=== PATIENT | female | born 1955 | race Caucasian/White ===

== ENCOUNTER 2017-04-18 10:41 | Outpatient (CLI) | payer OTHER ==
--- NOTE | 2017-04-19 18:44 | Mammography Report ---
DIGITAL SCREENING MAMMOGRAM: 04/18/2017 CLINICAL INDICATION: A 61-year-old with history of late childbearing, family history of breast cancer screening. COMPARISON: 01/2016, 01/2015, 01/2014, 01/2013, 10/2011, 10/2010, 03/2009. TECHNIQUE: Routine CC and MLO projections were obtained of the breasts. FINDINGS: The breasts again demonstrate heterogeneously dense fibroglandular parenchyma bilaterally. Coarse and punctate, typically benign calcifications are present. No suspicious masses, clustered microcalcifications, or regions of architectural distortion are identified. IMPRESSION: BENIGN FINDINGS. RECOMMENDATIONS: Routine annual screening unless otherwise clinically indicated. BIRADS category 2 benign findings. STANDARD QUALIFYING STATEMENTS 1. This examination was reviewed with the aid of Computed-Aided Detection (CAD). 2. A negative or benign imaging report should not delay biopsy if clinically suspicious findings are present. Consider surgical consultation if warranted. More than 5% of cancers are not identified by imaging. 3. Dense breasts may obscure an underlying neoplasm. TD: 04/19/2017 18:42
== END 2017-04-18 10:42 | disposition home or self-care (01) ==
LOC: DI.S 10:41
PROVIDERS: ATTEND Internal Medicine
DX: Z12.31 Encounter for screening mammogram for malignant neoplasm of breast (principal); Z80.3 Family history of malignant neoplasm of breast
CPT/HCPCS: 77067

== ENCOUNTER 2019-04-23 09:54 | Outpatient (CLI) | payer OTHER ==
--- NOTE | 2019-04-24 09:43 | Mammography Report ---
Reason: SCREENING MAMMO Procedure Date: 04/23/2019 Accession Number: [id number] / [id number] Procedure: MGS - Screening Mammo Dig Bilat CPT Code: Final Report FULL RESULT: EXAM: Screening Mammo Dig Bilat DATE: 04/23/2019 10:19 AM CLINICAL HISTORY: Screening encounter. History of late childbearing and early menses. Family history of breast cancer in the mother at the age of 50. TECHNIQUE: (B) - Bilateral CC and MLO views were obtained. COMPARISON: 04/18/2017 through 10/07/2010. PARENCHYMAL PATTERN: (D) - The breast(s) demonstrate(s) heterogeneously dense fibroglandular parenchyma. FINDINGS: There are no suspicious masses, calcifications, or areas of distortion. IMPRESSION: Negative examination. BI-RADS category 1. RECOMMENDATION: (ANNUAL) - Recommend routine annual screening mammography. BI-RADS CATEGORY: (1) - Negative. STANDARD QUALIFYING STATEMENTS: 1. This examination was reviewed with the aid of Computer-Aided Detection (CAD). 2. A negative or benign imaging report should not preclude biopsy if clinically suspicious findings are present. 3. Dense breasts may obscure an underlying neoplasm. 4. This examination was reviewed without the aid of 3D breast imaging (tomosynthesis).
== END 2019-04-23 09:55 | disposition home or self-care (01) ==
LOC: DI.S 09:54
PROVIDERS: ATTEND Internal Medicine
DX: Z12.31 Encounter for screening mammogram for malignant neoplasm of breast (principal); Z80.3 Family history of malignant neoplasm of breast
CPT/HCPCS: 77067

== ENCOUNTER 2020-06-19 16:15 | Outpatient (CLI) | payer OTHER ==
[2020-06-19 16:53] LABS: HCT - HEMATOCRIT 39.1 % (37.0-47.0); MEAN CORPUSCULAR HGB CONC 33.2 g/dL (32.0-36.0); MEAN CORPUSCULAR VOLUME 96.3 fL (81.0-99.0); RED BLOOD COUNT 4.06 10^6/uL (4.20-5.40); RED CELL DISTRIBUTION WIDTH 11.9 % (12.0-15.0)
[2020-06-19 17:08] LABS: ALBUMIN 4.2 g/dL (3.2-5.5); ALBUMIN/GLOBULIN RATIO 1.3 (1.0-2.2); BILIRUBIN,TOTAL 0.4 mg/dL (0.2-1.0); CALCIUM 9.6 mg/dL (8.5-10.3); CREATININE 0.8 mg/dL (0.4-1.0); POTASSIUM 4.3 mmol/L (3.5-5.0); TOTAL PROTEIN 7.5 g/dL (6.7-8.2)
== END 2020-06-19 16:16 | disposition home or self-care (01) ==
LOC: RT 16:15
PROVIDERS: ATTEND Nurse Practitioner Family
DX: Z01.810 Encounter for preprocedural cardiovascular examination (principal); M79.3 Panniculitis, unspecified
CPT/HCPCS: 36415; 80053; 85027; 93005

== ENCOUNTER 2021-03-24 07:40 | Outpatient (CLI) | payer OTHER ==
--- NOTE | 2021-03-25 11:39 | Mammography Report ---
BILATERAL DIGITAL SCREENING MAMMOGRAM 3D/2D: 03/24/2021 CLINICAL: Routine screening. Family history of breast cancer. Comparison is made to exams dated: 04/23/2019 mammogram, 04/18/2017 mammogram, 01/27/2016 mammogram, 1 04/05/2014 mammogram, and 01/09/2013 mammogram - [facility]. There are scattered fib roglandular elements in both breasts. No significant masses, calcifications, or other findings are seen in either breast. There has been no significant interval change. IMPRESSION: NEGATIVE There is no mammographic evidence of malignancy. A 1 year screening mammogram is recommended. This exam was interpreted at Station ID: [id number]. NOTE: For mammograms, a report in lay terms will be sent to the patient. Approximately 15% of breast malignancies will not be visualized mammographically. In the management of a palpable breast mass, a negative mammogram must not discourage biopsy of a clinically suspicious lesion. Electronically Signed By: Andre Mc M.D. [email or web address]/[email or web address]:03/24/2021 17:29:19 ACR BI-RADS Category 1: Negative 3341F PARENCHYMAL PATTERN: (A) - The breast(s) demonstrate(s) scattered fibroglandular densities. BI-RADS CATEGORY: (1) - 1 RECOMMENDATION: (ANNUAL) - Recommend routine annual screening mammography. [id number] 1 year screening LATERALITY: (B)
== END 2021-03-24 07:41 | disposition home or self-care (01) ==
LOC: DI.S 07:40
PROVIDERS: ATTEND Internal Medicine
DX: Z12.31 Encounter for screening mammogram for malignant neoplasm of breast (principal); Z80.3 Family history of malignant neoplasm of breast

== ENCOUNTER 2021-09-05 15:12 | Outpatient (CLI) | payer OTHER | END 2021-09-05 15:13 | disposition left against medical advice (07) | LOC: EMS 15:12 | DX: R07.9 Chest pain, unspecified (principal); V49.40XA Driver injured in collision with unspecified motor vehicles in traffic accident, initial encounter; Y92.413 State road as the place of occurrence of the external cause ==

== ENCOUNTER 2021-09-05 18:52 | Emergency (ER) | payer OTHER ==
[2021-09-05 19:07] VITALS: BP 125/69
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
[2021-09-05] MEDS: LIDOCAINE PATCH 5% TOP STA (21:21)
== END 2021-09-05 22:03 | disposition home or self-care (01) ==
LOC: ED 18:52
DX: S46.911A Strain of unspecified muscle, fascia and tendon at shoulder and upper arm level, right arm, initial encounter (principal); V43.52XA Car driver injured in collision with other type car in traffic accident, initial encounter; Y93.89 Activity, other specified; Y92.410 Unspecified street and highway as the place of occurrence of the external cause; F17.200 Nicotine dependence, unspecified, uncomplicated
CPT/HCPCS: 71045; 73030; 73060; 99282; 99283; A9270

== ENCOUNTER 2021-12-09 14:44 | Outpatient (CLI) | payer OTHER ==
--- NOTE | 2021-12-09 16:37 | MRI Report ---
PROCEDURE: Lumbar Spine W/O INDICATIONS: LOW BACK PAIN TECHNIQUE: Noncontrast sagittal T1 spin echo and T2 fast echo, sagittal STIR, axial T1 and T2 fast spin echo thr ough the lumbar spine. In cases with scoliosis, additional coronal T2 fast spin echo may be performe d. COMPARISON: None. FINDINGS: Approximately 3 mm degenerative anterolisthesis of L5 on S1. No associated pars defect. Otherwise nor mal alignment. Vertebral body heights maintained. No suspicious focal marrow signal abnormality or davion ne marrow edema. Normal position and appearance of the conus. Prevertebral and paraspinous soft tissu es are normal. T12-L1: No spinal canal or neural foraminal stenosis. L1-L2: Moderate spinal canal stenosis due to diffuse disc bulge and a superimposed broad-based pos terior disc protrusion. Disc material displaces the descending L2 nerve roots within both subarticula r zones. Foraminal components of the disc bulge and facet hypertrophy combine to produce mild bilater al neural foraminal stenosis. L2-L3: Diffuse disc bulge flattens the ventral thecal sac. No mass effect upon the traversing L3 n erve roots. Mild bilateral neural foraminal narrowing due to foraminal components of the disc bulge. L3-L4: Moderate spinal canal stenosis due to diffuse disc bulge with a superimposed broad-based pos terior disc protrusion as well as buckling of the ligamentum flavum and bulky facet hypertrophy. [place] ding of the traversing nerve roots with near complete effacement of the intervening CSF. Foraminal co mponents of the disc bulge and facet hypertrophy combine to produce moderate right and severe left ne ural foraminal stenosis. L4-L5: Diffuse disc bulge and a superimposed broad-based posterior disc protrusion. Disc material d isplaces the descending L5 nerve roots in the subarticular zones producing overall moderate subarticu lar zone narrowing. Foraminal components of the disc bulge and facet hypertrophy combine to produce m oderate bilateral neural foraminal stenosis. Abutment of the exiting L4 nerve root on the right by di sc material. L5-S1: Diffuse disc bulge and a superimposed broad-based posterior disc extrusion with displacement of the descending S1 nerve roots and both subarticular zones, more pronounced on the left. Foraminal components of the disc bulge and facet hypertrophy combine to produce moderate bilateral neural fora viky stenosis. There is flattening of the exiting L5 nerve roots due to abutment by disc material bi laterally. IMPRESSION: Multilevel multifactorial degenerative changes as detailed above. Moderate spinal canal and subarticular zone stenosis at L3-L4 and L4-L5 and L5-S1, with potential foc al nerve root impingement. Varying degrees of neural foraminal narrowing, moderate to severe from L3-L4 through L5-S1. Correlate for corresponding radicular symptoms. Reviewed by: Jp Villarreal MD on 12/09/2021 4:35 PM PDT Approved by: Jp Villarreal MD on 12/09/2021 4:35 PM PDT Station ID: [id number]
== END 2021-12-09 14:45 | disposition home or self-care (01) ==
LOC: DI 14:44
PROVIDERS: ATTEND Internal Medicine
DX: M51.16 Intervertebral disc disorders with radiculopathy, lumbar region (principal); M51.17 Intervertebral disc disorders with radiculopathy, lumbosacral region; M47.26 Other spondylosis with radiculopathy, lumbar region; M47.27 Other spondylosis with radiculopathy, lumbosacral region; M48.061 Spinal stenosis, lumbar region without neurogenic claudication; M48.07 Spinal stenosis, lumbosacral region

== ENCOUNTER 2022-01-13 18:41 | Outpatient (CLI) | payer OTHER | END 2022-01-13 18:42 | disposition critical access hospital (66) | LOC: EMS 18:41 | DX: M54.50 Low back pain, unspecified (principal); V40.5XXA Car driver injured in collision with pedestrian or animal in traffic accident, initial encounter; Y92.413 State road as the place of occurrence of the external cause | CPT/HCPCS: A0425; A0429 ==

== ENCOUNTER 2022-01-13 18:42 | Emergency (ER) | payer OTHER ==
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
[2022-01-13 22:40] VITALS: BP 129/82
== END 2022-01-13 22:49 | disposition home or self-care (01) ==
LOC: EDUNIT# → ED 18:42
DX: S20.212A Contusion of left front wall of thorax, initial encounter (principal); V40.5XXA Car driver injured in collision with pedestrian or animal in traffic accident, initial encounter; Y92.410 Unspecified street and highway as the place of occurrence of the external cause; F17.200 Nicotine dependence, unspecified, uncomplicated
CPT/HCPCS: 99282; 99283

== ENCOUNTER 2022-09-02 08:00 | Outpatient (CLI) | payer OTHER ==
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
== END 2022-09-02 23:59 | disposition home or self-care (01) ==
LOC: DI.S 08:00
PROVIDERS: ATTEND Physician Assistant
DX: M25.571 Pain in right ankle and joints of right foot (principal); M79.604 Pain in right leg

== ENCOUNTER 2023-07-24 20:15 | Emergency (ER) | payer OTHER ==
[2023-07-24] MEDS: HYDROmorphone 2 MG TABLET PO STA (21:46)
--- NOTE | 2023-07-24 21:48 | ED Physician Documentation ---
History of Present Illness - Stated complaint Stated Complaint: RT HAND/ELBOW PX,POST SURGERY - Chief complaint Chief Complaint: Ext Problem - History obtained from History obtained from: Patient, Family - History of Present Illness Pain level max: 7 Pain level now: 7 - Additonal information Additional information: Patient had surgery on her right thumb 3 days ago at the [facility] in [place]. She states it feels like the splint is too tight and her hand is swelling. She states her pain is not being adequately controlled by the oxycodone she is taking at home. No redness. No fevers. No chills. Nothing seems to make it better or worse. She states that she is using her sling and elevating the arm whenever possible. Review of Systems Constitutional: denies: Fever, Chills Respiratory: denies: Cough GI: denies: Nausea, Vomiting, Diarrhea PD PAST MEDICAL HISTORY - Past Medical History Past Medical History: Yes GI: GERD Psych: Depression, Anxiety, Bipolar disorder, Post traumatic stress disorder - Past Surgical History Past Surgical History: Yes Ortho: Carpal Tunnel surgery - Present Medications Home Medications: Ambulatory Orders Medication Instructions Recorded Confirmed Acetaminophen/Cod 300/30 [Tylenol 1 tab Q4HR PRN 01/16/16 07/24/23 #3] Aspirin 81 mg PO DAILY 01/16/16 07/24/23 Cetirizine [ZyrTEC] 1 tab DAILY 01/16/16 01/16/16 DULoxetine [Cymbalta] 120 mg DAILY 01/16/16 07/24/23 Fluticasone 220 Mcg [Flovent] 2 puffs DAILY 01/16/16 07/24/23 Ketotifen Fumarate 5 ml OP BID 01/16/16 07/24/23 Lurasidone HCl [Latuda] 40 mg PO DAILY 01/16/16 07/24/23 Meloxicam 15 mg PO DAILY 01/16/16 07/24/23 Miconazole Nitrate Cream [Cavilon 01/16/16 Cream] Montelukast [Singulair] 10 mg PO QPM 01/16/16 07/24/23 Propylene Glycol [Systane Balance] 01/16/16 Pyridoxine 100 mg DAILY 01/16/16 07/24/23 SUMAtriptan succinate [Sumatriptan 100 mg PO QPM 01/16/16 07/24/23 Succinate] Sennosides [Evac-U-Gen] 8.6 mg PO QPM 01/16/16 07/24/23 Simvastatin 60 mg PO QPM 01/16/16 07/24/23 busPIRone [Buspar] 10 mg TID 01/16/16 07/24/23 clonazePAM [Clonazepam] 0.5 mg PO QID PRN 01/16/16 07/24/23 polyethylene glycoL 3350 [Miralax] 17 gm PO DAILY 01/16/16 07/24/23 traZODone [Desyrel] 100 mg QPM 01/16/16 07/24/23 Acetaminophen [Tylenol] 1,000 mg PO Q6HR PRN 07/24/23 07/24/23 Celecoxib 200 mg PO BID 07/24/23 07/24/23 oxyCODONE [Roxicodone] 5 mg PO Q6HR PRN 07/24/23 07/24/23 - Allergies Allergies/Adverse Reactions: Allergies Allergy/AdvReac Type Severity Reaction Status Date / Time Penicillins Allergy Unknown Verified 07/24/23 20:18 - Social History Does the pt smoke?: Yes Smoking Status: Current every day smoker Does the pt drink ETOH?: No Does the pt have substance abuse?: No - Immunizations Immunizations are current?: Yes - POLST Patient has POLST: No PD ED PE NORMAL - Vitals Vital signs reviewed: Yes - General General: Alert and oriented X 3, No acute distress - Derm Derm: Warm and dry - Extremities Extremities: Other (R hand - Thumb spica splint in place, plaster. The outer Fam wrap was removed, the splint was loosened slightly. Brisk cap refill in all fingertips. Mild swelling of the hand. No erythema. No streaking.) - Neuro Neuro: Alert and oriented X 3 - Psych Psych: Normal mood, Normal affect Results - Vitals Vitals: Vital Signs - 24 hr 07/24/23 20:18 Temperature 36.8 C Heart Rate 80 Respiratory 18 Rate Blood Pressure 128/69 O2 Saturation 99 Oxygen O2 Source Room air PD Medical Decision Making - ED course Complexity details: reviewed results, re-evaluated patient, considered differential, d/w patient ED course: The patient's Fam bandage was loosened as well as the splint. She states that she feels better. She was given a dose of oral Dilaudid here. Has oxycodone for pain at home. No signs of infection. She has an appointment with her orthopedist this week. Recommend that she elevate the area is much as possible and follow-up with her orthopedist for further care. No evidence of infection. No indication for further workup at this time. Patient counseled regarding signs and symptoms for which I believe and urgent re-evaluation would be necessary. Patient with good understanding of and agreement to plan and is comfortable going home at this time This document was made in part using voice recognition software. While efforts are made to proofread this document, sound alike and grammatical errors may occur. Departure - Departure Disposition: 01 Home, Self Care Clinical Impression: Postoperative pain Condition: Good Instructions: ED Post Op Pain, ED Splint Care Plaster Follow-Up: Your, orthopedist this week [Other] Comments: Please continue to elevate your arm whenever possible at home. Please use the sling is much as possible. Please return if you worsen. Forms: PCP List
[2023-07-24 22:10] VITALS: BP 120/87; O2SAT 98
== END 2023-07-24 22:06 | disposition home or self-care (01) ==
LOC: ED 20:15
DX: G89.18 Other acute postprocedural pain (principal); M79.641 Pain in right hand; M79.89 Other specified soft tissue disorders; Z46.89 Encounter for fitting and adjustment of other specified devices; F17.200 Nicotine dependence, unspecified, uncomplicated
CPT/HCPCS: 99283; A9270

== ENCOUNTER 2023-08-23 09:46 | Outpatient (CLI) | payer OTHER ==
--- NOTE | 2023-08-24 09:36 | Mammography Report ---
BILATERAL DIGITAL SCREENING MAMMOGRAM 3D/2D: 08/23/2023 CLINICAL: Routine screening. Family history of breast cancer. Comparison is made to exams dated: 03/24/2021 mammogram, 04/23/2019 mammogram, and 04/18/2017 mammogram - [facility]. Both breasts are heterogeneously dense, which may obscure small masses (category c / 51-75% glandular tissue). No significant masses, calcifications, or other findings are seen in either breast. There has been no significant interval change. IMPRESSION: NEGATIVE There is no mammographic evidence of malignancy. A 1 year screening mammogram is recommended. Based on Tyrer-Cuzick model (a risk assessment model), the patient's lifetime risk is 22.0% and her 1 0 year risk is 12.7%. If a patient has an elevated risk, a more comprehensive evaluation should be co nsidered and/or a referral to a genetic counselor. The [employer] [employer], [employer], and NCCN Guidelines advise the consideration of Breast MRI as an adjunct to screening mammo graphy in patients whose "Lifetime risk to develop breast cancer" is 20% or higher. This exam was interpreted at [facility]: [id number]. NOTE: For mammograms, a report in lay terms will be sent to the patient. Approximately 15% of breast malignancies will not be visualized mammographically. In the management of a palpable breast mass, a negative mammogram must not discourage biopsy of a clinically suspicious lesion. Electronically Signed By: Scot valdes/monet:08/23/2023 12:38:00 letter sent: No_Letter ACR BI-RADS Category 1: Negative 3341F PARENCHYMAL PATTERN: (D) - The breast(s) demonstrate(s) heterogeneously dense fibroglandular parenchy ma. BI-RADS CATEGORY: (1) - 1 RECOMMENDATION: (ANNUAL) - Recommend routine annual screening mammography. [id number] 1 year screening LATERALITY: (B)
== END 2023-08-23 09:47 | disposition home or self-care (01) ==
LOC: DI.S 09:46
PROVIDERS: ATTEND Internal Medicine
DX: Z12.31 Encounter for screening mammogram for malignant neoplasm of breast (principal); R92.333 Mammographic heterogeneous density, bilateral breasts; Z80.3 Family history of malignant neoplasm of breast